=== PATIENT | male | born 1985 | race Caucasian/White ===

== ENCOUNTER → 2017-06-24 | Outpatient (CLI) | payer OTHER ==
--- NOTE | 2017-06-24 15:03 | KCIC ---
PA and lateral chest radiograph. History: Pain with inspiration, trouble breathing for a few days. Comparison: None. Findings: Cardiomediastinal silhouette is within normal limits for size. Bilateral lung lyons appear clear without evidence of infiltrate, effusion, or pneumothorax. Impression: 1. No acute cardiopulmonary process. Electronically signed by: Eh Hernandez MD (06/24/2017 2:59 PM) [place] [id number]
== END | disposition home or self-care (01) ==
LOC: KCIC 14:42
PROVIDERS: ATTEND Nurse Practitioner Family
DX: R06.89 Other abnormalities of breathing (principal)
CPT/HCPCS: 71020

== ENCOUNTER → 2018-10-14 | Outpatient (CLI) | payer OTHER ==
--- NOTE | 2018-10-14 09:35 | KCIC ---
MRI Brain without contrast History: Paresthesia, muscle fasciculation, intermittent upper and lower extremity muscle weakness bilaterally, symptoms for about 7 months Technique: Multiplanar, multisequential noncontrast MR imaging was performed of the brain. Comparison: None Findings: There is mild motion. There is no evidence of recent infarct or cytotoxic edema. The ventricles, sulci, and cisterns are within normal limits in size and configuration. There is no significant midline shift, intraaxial mass effect, or focal abnormal extra-axial fluid collection. There is no significant signal abnormality of the brain parenchyma. There is preservation of the major intracranial flow-voids at the skull base. The mastoid air cells are aerated. The cerebellar tonsils are normal in location. There is no significant abnormality of the pineal gland or pituitary gland. Paranasal sinuses are mostly aerated, minimal patchy ethmoid air cell mucosal thickening and negligible maxillary sinus mucosal thickening. There is mild heterogeneity of the marrow signal of the clivus likely due to residual red marrow. Impression: 1. There is no significant intracranial abnormality. Electronically signed by: Ritchie Johnson MD (10/14/2018 9:32 AM) [id number]
--- NOTE | 2018-10-14 10:08 | KCIC ---
MRI Cervical Spine Without Contrast History:Paresthesia, muscle weakness bilaterally Technique: Multiplanar, multi sequential noncontrast MR imaging was performed of the cervical spine. Comparison: None Findings: There is no defined or expansile cord signal reproducible on various image sequences. Cervical cord caliber is within normal limits. Cervical vertebral body stature and AP alignment are maintained. Intervertebral disc spaces are maintained. There is no significant marrow edema. Neural foramina and spinal canal are adequate. There is no significant focal posterior disc abnormality of the cervical spine. Impression: 1. There is no significant abnormality. Electronically signed by: Ritchie Johnson MD (10/14/2018 10:04 AM) [email or web address]
--- NOTE | 2018-10-14 10:15 | KCIC ---
MRI Thoracic Spine without contrast History: Paresthesia, fasciculation of muscles, intermittent upper and lower extremity muscle weakness bilaterally for about 7 months Technique: Multiplanar, multi sequential noncontrast MR imaging was performed of the thoracic spine. Comparison: None Findings: There is some motion degradation. Thoracic vertebral body AP alignment is maintained. There is mild superior endplate concavity/Schmorl's node at T11 not associated with marrow edema or osseous retropulsion, probably developmental. Intervertebral disc spaces are maintained. Thoracic cord caliber is within normal limits without expansile or defined signal abnormality reproducible on the various image sequences. Evaluation for subtle cord signal change is somewhat limited due to motion artifact. There is no significant thoracic spinal stenosis or focal posterior disc abnormality. Facet degenerative change contributes to mild posterior neural foramina compromise greater on the left of the T9-10. Impression: 1. There is no defined thoracic cord signal abnormality allowing for motion artifact, limited evaluation for subtle signal change. There is no significant thoracic spinal stenosis. Electronically signed by: Ritchie Johnson MD (10/14/2018 10:11 AM) [email or web address]
== END | disposition home or self-care (01) ==
LOC: KCIC MRI 07:53
PROVIDERS: ATTEND Family Medicine
DX: R20.2 Paresthesia of skin (principal); R25.3 Fasciculation; R53.1 Weakness
CPT/HCPCS: 70551; 72141; 72146